=== PATIENT | female | born 1960 | race Caucasian/White ===

== ENCOUNTER → 2018-01-30 | Outpatient (CLI) | payer OTHER ==
[~2018-01-30] MED LIST: ALBIPROI INH; ALPR.5; AMIT25; AMIT25 PO; AMIT50 PO; AMLO10 PO; ASPI81EC; ATEN50 PO; ATOR10; AZIT250 PO; Aspirin EC81 MG PO; BENZ100A PO; CALC.25 PO; CALCIUM CITRAT1 EAC4 PO; CHOL10002; CYAN1000 PO; DULERA 100 MCG/13 GM INH; DULO30 PO; DULO60 PO; FAMO20; FURO20 PO; GABA300 PO; HYDACE5 PO; HYDACE5325; HYDGUAL120; HYDR1TAB94 PO; INHALER INH; K-Dur20 MEQ PO; LEVSOD125; LEVSOD125 PO; LEVSOD150 PO; LISHYD2012 PO; LISHYD2025; LISI10; LISI20 PO; MAGCHL64ER; MAGCHL64ER PO; METF500 PO; METF500C PO; METFORMIN PO; METO25ER PO; NAPR500; NITR.4SL SL; OMEP20ER PO; OXYACE5T PO; PAIN; PARO20; POTA10T PO; PROM25 PO; Pravastatin Sod40 MG PO; RANI150 PO; RIZA10MLT MM; ROPI.25 PO; ROPI5 PO; ROSU5; Requip0.5 MG PO; SOMA350 MG PO; SULTRIDS PO; VALS80; ZOLP10 PO; ZOLP5 PO; Zithromax250 MG PO
[2018-02-02 10:22] LABS: Codeine Not Detected (NOTDET); Hydrocodone 57 ng/mL (NOTDET); Hydromorphone Not Detected (NOTDET); Morphine Not Detected (NOTDET); Norhydrocodone 142 ng/mL (NOTDET); Noroxycodone Not Detected (NOTDET)
== END ==
LOC: LAB EV 11:45 → LAB SHORT 11:45
PROVIDERS: Internal Medicine
DX: G89.4 Chronic pain syndrome (principal)
CPT/HCPCS: G0480

== ENCOUNTER 2021-03-14 09:23 | Day surgery (SDC) | payer OTHER ==
[~2021-03-14] VITALS: Ht 149.9 cm; Wt 85.7 kg
== END 2021-03-14 12:12 | disposition home or self-care (01) ==
LOC: ORSCSDS 09:23
PROVIDERS: Surgery
PROC: 0JPT0WZ Removal of Totally Implantable Vascular Access Device from Trunk Subcutaneous Tissue and Fascia, Open Approach (ICD-10-PCS; principal; 2021-03-14 10:45)
DX: Z45.2 Encounter for adjustment and management of vascular access device (principal); I10 Essential (primary) hypertension; I25.10 Atherosclerotic heart disease of native coronary artery without angina pectoris; G47.33 Obstructive sleep apnea (adult) (pediatric); E11.9 Type 2 diabetes mellitus without complications; E66.01 Morbid (severe) obesity due to excess calories; Z68.38 Body mass index [BMI] 38.0-38.9, adult; Z79.899 Other long term (current) drug therapy
CPT/HCPCS: 82947; J0690; J1100; J2250; J2405; J2704; J3010; J7120

== ENCOUNTER 2021-04-18 10:39 | Day surgery (SDC) | payer OTHER ==
[~2021-04-18] VITALS: Ht 149.9 cm; Wt 82.9 kg
[2021-04-18] MEDS ORDERED: Lisinopril2.5 MG (11:12)
--- NOTE | 2021-04-18 13:11 | NUR ---
04/18/21 1311 Mary Boudreaux PT HAD DUONEB ORDERED BY DR LUGO. PRIOR TO DUONEB PT HAD BILATERAL WHEEZE AND WAS COUGHING. AFTER DUONEB PT DID NOT CONTINUE TO COUGH AND LUNG SOUNDS WERE CLEAR TO AUSCULTATION BILATERALLY. PT DENIED FEELING "TIGHT" OR SHORT OF BREATH. VSS, O2 SATS 99% ON ROOM AIR. PT AMBULATED TO HER HUSBANDS CAR AND VOICED SATISFACTION WITH THE CARE TODAY.
== END 2021-04-18 13:07 | disposition home or self-care (01) ==
LOC: ORSCSDS 10:39
PROVIDERS: Student in an Organized Health Care Education/Training Program
PROC: 0DB48ZX Excision of Esophagogastric Junction, Via Natural or Artificial Opening Endoscopic, Diagnostic (ICD-10-PCS; principal; 2021-04-18 12:00)
DX: R13.10 Dysphagia, unspecified (principal); I10 Essential (primary) hypertension; E11.9 Type 2 diabetes mellitus without complications; D64.9 Anemia, unspecified; E78.5 Hyperlipidemia, unspecified; K22.2 Esophageal obstruction; F41.9 Anxiety disorder, unspecified; G47.33 Obstructive sleep apnea (adult) (pediatric); E66.9 Obesity, unspecified; Z68.39 Body mass index [BMI] 39.0-39.9, adult; Z79.82 Long term (current) use of aspirin; Z79.84 Long term (current) use of oral hypoglycemic drugs; Z79.899 Other long term (current) drug therapy
CPT/HCPCS: 82947; 88305; J2704; J7120

== ENCOUNTER → 2023-06-18 | Outpatient (CLI) | payer OTHER ==
[~2023-06-18] MED LIST changes: +Lisinopril2.5 MG
[2023-06-18 14:51] LABS: BASOPHILS ABSOLUTE AUTO 0.08 K/mm3 (0.00-0.23); BASOPHILS PERCENT AUTO 1 % (0-2); EOSINOPHILS PERCENT AUTO 14 % (0-6); Hematocrit 39.8 % (33.0-51.0); Hemoglobin 13.5 g/dL (11.5-16.0); IMMATURE GRAN ABSOLUTE AUTO 0.05 K/mm3 (0.00-0.10); IMMATURE GRAN PERCENT AUTO 1 % (0-1); LYMPHOCYTES ABSOLUTE AUTO 1.24 K/mm3 (0.84-5.20); LYMPHOCYTES PERCENT AUTO 15 % (21-46); MONOCYTES ABSOLUTE AUTO 0.62 K/mm3 (0.16-1.47); MONOCYTES PERCENT AUTO 7 % (4-13); Mean Corpuscular HGB 32.1 pg (26.0-34.0); Mean Corpuscular HGB Conc 33.9 g/dL (31.5-36.5); Mean Corpuscular Volume 95 fL (80-100); Mean Platelet Volume 9.3 fL (9.1-12.4); NEUTROPHILS ABSOLUTE AUTO 5.29 K/mm3 (1.96-9.15); NEUTROPHILS PERCENT AUTO 62 % (41-73); Platelet Count 442 K/mm3 (150-400); RDW Coefficient Variation 15.2 % (11.7-14.2); White Blood Cell Count 8.48 K/mm3 (4.00-11.30)
[2023-06-18 19:32] LABS: Alanine Aminotransfer (ALT/SGP 35 U/L (12-78); Albumin, Blood 3.5 g/dL (3.4-5.0); Albumin/Globulin Ratio 0.9 (0.8-1.8); Alk Phos 80 U/L (50-136); Anion Gap 6 mmol/L (6-16); Aspartate Aminotrans (AST/SGOT 15 U/L (12-37); Bilirubin, Total 0.2 mg/dL (0.1-1.0); Blood Urea Nitrogen 10 mg/dL (8-24); Bun/Creatinine Ratio 11.6 (12.0-20.0); CHOL/HDL RATIO 3.7; CO2, Blood 31 mmol/L (21-32); Chloride, Blood 102 mmol/L (98-108); Cholesterol 203 mg/dL (50-200); Creatinine, Blood 0.86 mg/dL (0.40-1.00); Globulin, Blood 4.1 g/dL (2.2-4.0); Glomerular Filtration Rate 76 (60-); Glucose, Blood 104 mg/dL (70-99); HDL Cholesterol 55 mg/dL (>39); LDL/HDL RATIO 2.1; Low Density Lipoprotein Chol 113 mg/dL (0-110); Potassium, Blood 3.9 mmol/L (3.5-5.5); Sodium, Blood 139 mmol/L (136-145); Total Protein, Blood 7.6 g/dL (6.4-8.2); Triglycerides 174 mg/dL (30-160); Very Low Density Lipoprot Chol 34 mg/dL (6-32)
== END | disposition home or self-care (01) ==
LOC: LAB SHORT 09:45 → LAB 09:45
PROVIDERS: Family Medicine
DX: E11.9 Type 2 diabetes mellitus without complications (principal); E78.5 Hyperlipidemia, unspecified
CPT/HCPCS: 80053; 80061; 83036; 85025

== ENCOUNTER → 2023-10-23 | Outpatient (CLI) | payer OTHER ==
[2023-10-31 07:22] LABS: HPV GENOTYPE 16 Not Detected; HPV GENOTYPE 18 Not Detected; HPV HIGH RISK Not Detected; HPV SOURCE Cervical
== END ==
LOC: LAB 12:05 → LAB SHORT 12:05
PROVIDERS: Advanced Practice Midwife
DX: Z01.419 Encounter for gynecological examination (general) (routine) without abnormal findings (principal)
CPT/HCPCS: 87624; G0123